=== PATIENT | male | born 1945 | race Caucasian/White ===

== ENCOUNTER 2020-07-21 17:32 | Inpatient (IN) | payer BC, MEDICARE ==
[~2020-07-21] VITALS: Ht 172.7 cm; Wt 72.6 kg
--- NOTE | 2020-07-21 17:32 | NUR ---
Patient brought in by RA 85 with agonal breathing, saturation 73% room air, and unresponsive 102/73, 95 heart rate Etomidate 20 MF IVP given per MD verbal orders, MD Munoz intubated patient at this time and placed patient on vent. NG tube place on intermittent suction, hughes catheter placed tidal volume 550, pip 5, 100% O2, respirations noted at AC 18 Propofol 5mg given IVP per MD verbal orders Right jugular 20g IV placed, Left hand 20 g IV placed, Left femoral IV placed by MD hill Patient remains hypotensive , pressors initiated X-ray done to verify NG and ET position, NG tube output noted with dark green fluid patient remains unresponsive at this time
[2020-07-21] MEDS ORDERED: PANTOPRAZOLE SODIUM IV 80 MG in IV DEXTROSE 5% 100 ML IV ONE (17:45)
[2020-07-21] MEDS ORDERED: PROPOFOL 1,000 MG/100 ML BOTTLE IV ONE (17:45)
[2020-07-21] MEDS ORDERED: IV NORMAL SALINE 1000 ML BAG IV ONE ×2 (17:45→20:00)
--- NOTE | 2020-07-21 17:50 | NUR ---
Pt orally intubated with 7.0 ETT secured at 23cm lip line. Good color change noted on capnographer. Pt placed on ordered settings of A/C 18. VT 550, PEEP 5, FIO2 100% .. Tolerating vent settings well. Vent alarm parameters checked, on and audible. Sputum sample sent to lab. BVM at bedside. Vent plugged into red outlet.
[2020-07-21] MEDS ORDERED: PROPOFOL 100 ML ONE (18:13)
[2020-07-21] MEDS ORDERED: PIPERACILLIN SODIUM/TAZOBACTAM 3.375 G in IV DEXTROSE 5% 50 ML IV ONE (18:15)
[2020-07-21] MEDS ORDERED: NOREPINEPHRINE BITARTRATE 8 MG in IV NORMAL SALINE 242 ML IV PRN (18:15)
[2020-07-21] MEDS ORDERED: PHENYLEPHRINE IV 50 MG in IV NORMAL SALINE 245 ML IV PRN (18:30)
--- NOTE | 2020-07-21 19:00 | NUR ---
OLGA Lynn inserted CVC on left femoral vein, triple lumen catheter.
[2020-07-21 19:22] LABS: CARBON DIOXIDE 11 mmol/L (21-32); CHLORIDE 103 mmol/L (98-107); CREATININE 4.4 mg/dL (0.6-1.3); GLUCOSE 56 mg/dL (74-106); POTASSIUM 5.2 mmol/L (3.5-5.1); UREA NITROGEN, BLOOD 50 mg/dL (7-18)
[2020-07-21 19:25] LABS: NEUTROPHILS % (AUTO) 2.5 % (38.5-71.5)
[2020-07-21 19:26] LABS: EOSINOPHILS % (AUTO) 0.1 % (0.0-7.0); LYMPHOCYTES # (AUTO) 0.7 K/uL (20.0-40.0); LYMPHOCYTES % (AUTO) 94.9 % (20.5-51.5); MEAN CORPUSCULAR HEMOGLOBIN 29.6 uug (23.8-33.4); MEAN CORPUSCULAR HGB CONC 32 g/dL (32.5-36.3); MONOCYTES % (AUTO) 2.5 % (0.0-11.0); PLATELET COUNT (AUTO) 312 K/uL (152-348)
[2020-07-21 19:30] LABS: HEMATOCRIT 20.2 % (36.7-47.1); HEMOGLOBIN 6.5 g/dL (12.5-16.3); WHITE BLOOD COUNT (AUTO) 0.7 K/uL (3.6-10.2)
[2020-07-21] MEDS ORDERED: NOREPINEPHRINE BITARTRATE 4 MG/4 ML VIAL IV ONE ×3 (19:35→23:03)
[2020-07-21 19:38] LABS: ALANINE AMINOTRANSFERASE 1545 U/L (16-63); ALKALINE PHOSPHATASE 120 U/L (50-136); ASPARTATE AMINOTRANSFERASE 1555 U/L (15-37); BILIRUBIN,DIRECT 1.2 mg/dL (0.0-0.2); BILIRUBIN,TOTAL 1.6 mg/dL (0.2-1.0); TOTAL PROTEIN, SERUM 5.2 g/dL (6.4-8.2)
[2020-07-21 20:06] LABS: *BLOOD, URINE 3+ (NEGATIVE); *KETONES,URINE NEGATIVE (NEGATIVE); LEUKOCYTE ESTERASE ,URINE NEGATIVE (NEGATIVE); NITRITE, URINE POSITIVE (NEGATIVE); PH,URINE 6.5 (5.0-8.0); UGLUCOSE NEGATIVE (NEGATIVE)
[2020-07-21 20:13] LABS: *BILIRUBIN,URIN 2+ (NEGATIVE); *CLARITY,URINE CLOUDY (CLEAR); *COLOR,URINE DARK YELLOW (YELLOW)
[2020-07-21] MEDS ORDERED: PIPERACILLIN/TAZOBACTAM/D5W 50 ML IV ONE (20:13)
[2020-07-21 20:14] LABS: RBC,URINE 80-100 /HPF (0-3)
[2020-07-21 20:15] LABS: BACTERIA,URINE MODERATE /HPF (NONE SEEN); SQUAMOUS EPITHELIAL CELL,UR MODERATE /HPF (NONE SEEN)
[2020-07-21] MEDS ORDERED: PANTOPRAZOLE SODIUM 40 MG VIAL ONE (20:15)
--- NOTE | 2020-07-21 20:17 | NUR ---
Dr. Lynn on panel call with Dr. Gates.
[2020-07-21 20:22] LABS: ABG BASE EXCESS -20.5 mmol/L; ABG HCO3 7.4 mmol/L; ABG PCO2 24.4 mmHg (35.0-45.0); ABG PH 7.099 (7.350-7.450); ABG PO2 186.7 mmHg (75.0-100.0); ABG SITE RIGHT FEMORAL; ABG TOTAL HEMOGLOBIN 6.8 G/dL (13.5-18.0); COHb 0.8 % (0.5-1.5); MetHb 0.5 % (0.0-1.5); O2Hb 97.7 % (94.0-97.0); VENT MODE VENT - A/C; VT, ABG 550 mL
[2020-07-21] MEDS ORDERED: DEXTROSE 50% 50 ML DISP.SYRIN ONE (20:23)
[2020-07-21] MEDS ORDERED: DEXTROSE 50% 50 ML DISP.SYRIN IV ONE (20:30)
[2020-07-21] MEDS: VANCOMYCIN IV 1,000 MG in IV DEXTROSE 5% 250 ML IV ONE (20:30)
--- NOTE | 2020-07-21 20:30 | NUR ---
Note to pharmacy: Vancomycin given in ER. Addendum: 07/22/20 at 0122 by BRITTNEY HILL RN Dose was not given in ER; dose given now [id number] @ 0120.
[2020-07-21 20:32] LABS: LYMPHOCYTES % (MANUAL) 92 % (20-40); MONOCYTES % (MANUAL) 4 % (2-10); NEUTROPHILS % (MANUAL) 4 % (42-75)
[2020-07-21] MEDS ORDERED: ONDANSETRON 4 MG/2 ML VIAL ONE (20:50)
--- NOTE | 2020-07-21 21:29 | NUR ---
Son at bedside with patient.
[2020-07-21] MEDS ORDERED: ONDANSETRON 4 MG/2 ML VIAL IV PRN (21:30)
[2020-07-21] MEDS ORDERED: VANCOMYCIN IV 1,000 MG in IV DEXTROSE 5% 250 ML IV ONE (21:30)
[2020-07-21] MEDS ORDERED: SODIUM BICARBONATE 8.4% 50 MEQ in IV D5 1/2 NS 1000 ML 1,000 ML IV PRN (21:30)
[2020-07-21] MEDS ORDERED: NOREPINEPHRINE BITARTRATE 8 MG in IV NORMAL SALINE 250 ML IV PRN (21:30)
--- NOTE | 2020-07-21 21:35 | NUR ---
Bed bath and perineal care provided for patient.
[2020-07-21] MEDS ORDERED: SODIUM BICARBONATE 8.4% 50 MEQ/50 ML DISP.SYRIN IV ONE ×2 (22:11→22:30)
[2020-07-21] MEDS ORDERED: DOPamine IV DRIP 400 MG/250ML 250 ML IV ONE (22:15)
[2020-07-21] MEDS ORDERED: DOPamine IV DRIP 400 MG/250ML 250 ML ONE (22:18)
[2020-07-21] MEDS ORDERED: PHENYLEPHRINE 10 MG/1 ML VIAL ONE (22:18)
--- NOTE | 2020-07-21 22:20 | NUR ---
Dopamine 400mg started at 2220. Infusing in CVC.
[2020-07-21] MEDS ORDERED: HYDROCORTISONE SOD SUCCINATE 100 MG/2 ML VIAL IV ONE (22:30)
--- NOTE | 2020-07-21 22:58 | NUR ---
Another bag of Levophed 8mg started for infusion via CVC
[2020-07-21] MEDS ORDERED: VASOPRESSIN 20 UNIT in IV NORMAL SALINE 40 ML IV PRN (23:30)
[2020-07-21 23:45] VITALS: BP 105/51
--- NOTE | 2020-07-21 23:57 | NUR ---
Patient transported to CCU in stable condition. Report given to HOLLY Abernathy. Patient was transported with a monitor worker, and assistance of lead housekeeper and SWAPNA Wagoner. Patient under the care of Dr. Crews.
[2020-07-22] VITALS (81 sets, daily range): BP systolic 0–179; BP diastolic 0–96
--- NOTE | 2020-07-22 00:01 | NUR ---
Patient admitted to CCU #4 @ [id number] at 2345. Rec'd via tonardemi from ER. Max'd dose: DEopamin, Levophed, Neosynephrine gtts; plus, Diprivan & Bicarb gtts. Pupils fixed & dilated @ 6 mm. Skin mottled generalized. NGT clamped right nare. Oral ETT @ 7.0 @ lip: A/C 18, TV 550, peep 5; Julieta Fenton, BROADBAND TECHNICIAN agrees FiO2 100%; coarse breath sounds, generalized. Abdomen soft, non-distended, hypoactive bowel sounds. Sanon without urine output. Addendum: 07/22/20 at 0058 by BRITTNEY HILL RN Unable to obtain SpO2 reading; as, peripherial circulation clamped down / vasopressors.
[2020-07-22] MEDS ORDERED: NOREPINEPHRINE BITARTRATE 4 MG/4 ML VIAL IV ONE (00:46)
[2020-07-22] MEDS ORDERED: CEFEPIME HCL 1 G VIAL ONE ×2 (01:18→01:36)
[2020-07-22] MEDS: VANCOMYCIN IV 1,000 MG in IV DEXTROSE 5% 250 ML IV ONE (01:19)
[2020-07-22] MEDS ORDERED: VANCOMYCIN IV 200 ML ONE (01:19)
[2020-07-22] MEDS ORDERED: IV NORMAL SALINE 250 ML IV PRN (01:30)
[2020-07-22] MEDS ORDERED: CEFEPIME HCL 2 G in IV DEXTROSE 5% 100 ML IV ONE (02:00)
[2020-07-22] MEDS: PHENYLEPHRINE IV 50 MG in IV NORMAL SALINE 245 ML IV PRN ×3 (02:00→10:47)
[2020-07-22 05:59] LABS: ABG BASE EXCESS -31.4 mmol/L; ABG HCO3 5.2 mmol/L; ABG PCO2 62.4 mmHg (35.0-45.0); ABG PH 6.542 (7.350-7.450); ABG PO2 33.7 mmHg (75.0-100.0); ABG SITE RIGHT BRACHIAL; ABG TOTAL HEMOGLOBIN 7.1 G/dL (13.5-18.0); COHb 0.4 % (0.5-1.5); O2Hb 32.8 % (94.0-97.0); VENT MODE VENT - A/C; VT, ABG 550 mL
[2020-07-22 06:18] LABS: EOSINOPHILS % (AUTO) 0.1 % (0.0-7.0); HEMATOCRIT 25.5 % (36.7-47.1); LYMPHOCYTES # (AUTO) 0.4 K/uL (20.0-40.0); MEAN CORPUSCULAR HEMOGLOBIN 29.8 uug (23.8-33.4); MEAN CORPUSCULAR HGB CONC 28 g/dL (32.5-36.3); MEAN CORPUSCULAR VOLUME 105.1 fL (73.0-96.2); NEUTROPHILS % (AUTO) 2.9 % (38.5-71.5); PLATELET COUNT (AUTO) 223 K/uL (152-348)
[2020-07-22 06:29] LABS: ALKALINE PHOSPHATASE 131 U/L (50-136); BILIRUBIN,TOTAL 1.7 mg/dL (0.2-1.0); CHLORIDE 102 mmol/L (98-107); CREATININE 4.9 mg/dL (0.6-1.3); GLUCOSE 132 mg/dL (74-106); TOTAL PROTEIN, SERUM 5.1 g/dL (6.4-8.2); UREA NITROGEN, BLOOD 48 mg/dL (7-18)
[2020-07-22 06:30] LABS: MAGNESIUM 2.5 mg/dL (1.8-2.4)
[2020-07-22 06:36] LABS: HEMOGLOBIN 7.3 g/dL (12.5-16.3); RED BLOOD CELL COUNT(AUTO) 2.43 MIL/uL (4.06-5.63); WHITE BLOOD COUNT (AUTO) 0.4 K/uL (3.6-10.2)
[2020-07-22] MEDS: DOPamine IV DRIP 400 MG/250ML 250 ML IV PRN ×4 (06:48→14:58)
[2020-07-22 07:01] LABS: LYMPHOCYTES % (MANUAL) 94 % (20-40); MONOCYTES % (MANUAL) 3 % (2-10); NEUTROPHILS % (MANUAL) 3 % (42-75)
[2020-07-22 07:04] LABS: CARBON DIOXIDE < 5 mmol/L (21-32); POTASSIUM 6.9 mmol/L (3.5-5.1)
[2020-07-22 07:06] LABS: ALANINE AMINOTRANSFERASE 3204 U/L (16-63); ASPARTATE AMINOTRANSFERASE 3204 U/L (15-37)
[2020-07-22] MEDS: NOREPINEPHRINE BITARTRATE 32 MG in IV NORMAL SALINE 218 ML IV PRN ×3 (07:12→20:45)
[2020-07-22] MEDS ORDERED: FILGRASTIM 480 MCG/1.6 ML VIAL SUBCUT ONE (07:15)
[2020-07-22] MEDS ORDERED: IV DEXTROSE 5% 100 ML BAG IV ONE (07:15)
[2020-07-22] MEDS ORDERED: BUMETANIDE 1 MG/4 ML VIAL IV ONE (07:45)
[2020-07-22] MEDS ORDERED: SODIUM POLYSTYRENE SULFONATE 15 G/60 ML LIQUID UDC PO ONE (07:45)
[2020-07-22] MEDS ORDERED: SODIUM BICARBONATE 8.4% 50 MEQ/50 ML DISP.SYRIN IV ONE ×5 (07:45→23:49)
--- NOTE | 2020-07-22 07:46 | NUR ---
AT BEDSIDE WITH RT AND NOTED PATIENT GOING BRADYCARDIC, CHECKED PULSES, FAINT AND THEN LOSS OF PULSE. PATIENT IN PEA. CODE INITIATED AND COMPRESSIONS STARTED. PATIENT ALREADY HAD ESTABLISHED ET TUBE IN PLACE AND WAS MAXED OUT ON VASOPRESSIN, NEOSYNEPHRINE, NOREPINEPHRINE, AND ON 20MCG OF DOPAMINE, AND A BICARB DRIP WITH NO BP FOR THE LAST HOUR AND 30 MIN. PLEASE REFER TO CODE SHEET FOR DETAILS OF CODE.
[2020-07-22] MEDS ORDERED: BUMETANIDE INJ 4 MG in IV DEXTROSE 5% 24 ML IV ONE (08:00)
--- NOTE | 2020-07-22 08:30 | NUR ---
Received a call from Katarina Robert and as stated by her "When my please call me not my son He doesn't want anything to do with the call. just give me a call my numb is . Assigned R.N notified.
[2020-07-22] MEDS: VASOPRESSIN 20 UNIT in IV NORMAL SALINE 40 ML IV PRN ×2 (08:36→16:50)
[2020-07-22] MEDS ORDERED: TBO-FILGRASTIM 480 MCG/0.8 ML SYRINGE SQ ONE (09:00)
[2020-07-22] MEDS ORDERED: PANTOPRAZOLE SODIUM 40 MG VIAL IV SCH (09:00)
[2020-07-22] MEDS: SODIUM BICARBONATE 8.4% 150 MEQ in IV D5W 1000ML 1,000 ML IV PRN ×2 (09:10→21:37)
[2020-07-22] MEDS: HYDROCORTISONE SOD SUCCINATE 100 MG/2 ML VIAL IV SCH ×3 (09:12→21:40)
[2020-07-22 10:11] LABS: ABG BASE EXCESS -31.5 mmol/L; ABG HCO3 1.9 mmol/L; ABG PCO2 16.1 mmHg (35.0-45.0); ABG PO2 263.5 mmHg (75.0-100.0); ABG SITE A-Line; ABG TOTAL HEMOGLOBIN 6.4 G/dL (13.5-18.0); COHb 1.1 % (0.5-1.5); MetHb 1.1 % (0.0-1.5); O2Hb 97.4 % (94.0-97.0); VENT MODE VENT - A/C 26; VT, ABG 550 mL
[2020-07-22 10:46] LABS: CHLORIDE 103 mmol/L (98-107); CREATININE 5.1 mg/dL (0.6-1.3); GLUCOSE 153 mg/dL (74-106); UREA NITROGEN, BLOOD 51 mg/dL (7-18)
--- NOTE | 2020-07-22 10:50 | NUR ---
CURRENTLY ON DIALYSIS AT THIS TIME WITH KETTLE SKIMMER AT BEDSIDE.
[2020-07-22 11:00] LABS: CARBON DIOXIDE < 5 mmol/L (21-32); POTASSIUM 7.3 mmol/L (3.5-5.1)
--- NOTE | 2020-07-22 11:08 | NUR ---
PAGED DR SHIELDS - PULMONOLOGY, AT 1057 REGARDING THE 1000 ABG READING. RECEIVED A CALLBACK AT THIS TIME. NO NEW ORDERS RECEIVED AT THIS TIME.
--- NOTE | 2020-07-22 12:56 | NUR ---
DIALYSIS COMPLETED. NO OUTPUT, PER GLASS INSPECTOR.
[2020-07-22 13:20] LABS: ABG BASE EXCESS -12.7 mmol/L; ABG HCO3 12.5 mmol/L; ABG PCO2 25.8 mmHg (35.0-45.0); ABG PH 7.303 (7.350-7.450); ABG PO2 170.2 mmHg (75.0-100.0); ABG SITE A-Line; ABG TOTAL HEMOGLOBIN 5.7 G/dL (13.5-18.0); MetHb 0.8 % (0.0-1.5); O2Hb 97.2 % (94.0-97.0); VENT MODE VENT - A/C26; VT, ABG 550 mL
[2020-07-22] MEDS ORDERED: VANCOMYCIN IV 500 MG in IV DEXTROSE 5% 100 ML IV ONE (13:30)
[2020-07-22] MEDS: PHENYLEPHRINE IV 100 MG in IV NORMAL SALINE 240 ML IV PRN ×2 (13:56→20:44)
--- NOTE | 2020-07-22 14:00 | NUR ---
salvage mend worker called and was informed that the was per what the son said. Needed clarification of who will be the next of kin at this point if they are and he is not newly to present partner.
[2020-07-22] MEDS ORDERED: ETOMIDATE 20 MG/10 ML VIAL MC ONE (14:12)
[2020-07-22] MEDS ORDERED: PROPOFOL 200 MG/20 ML BOTTLE IV ONE (14:12)
--- NOTE | 2020-07-22 14:40 | NUR ---
Nick conservation worker called back. Due to unknown marital status the son Jimbo is the decision maker and decisions are being made together by Jimbo's mother, patient brother, and the son, and final decisions will be informed to us by Jimbo the son.
[2020-07-22] MEDS ORDERED: CEFEPIME HCL 1 G in IV DEXTROSE 5% 50 ML IV SCH (15:00)
--- NOTE | 2020-07-22 15:05 | NUR ---
Master Plumber Consultation: 2:00pm: This LIBRARY CLERICAL ASSISTANT was informed by CCU nurse Nano that there was some discrepancies in the status of patient's decision maker. Nano stated that patient's Maryam was actually patient's ex-, per son Jimbo's report, and that they needed clarification on the responsible decision maker for the family. RENNY called Maryam, , who stated that she was to the patient for 33 years, and they have 1 son together, Jimbo. Maryam stated that she has been from the patient for a while, but was not sure if the divorce had fully gone through. Maryam stated that she, her son Jimbo (who is also the patient's son) and patient's brother Francisco, are all making decision together and "we are all on the same page". RENNY thanked Maryam for this information, and then called patient's son Jimbo to verify this information. Jimbo, , was available to speak with this SW. Jimbo verified that they are making all decisions as a family, and RENNY expressed understanding. RENNY explained to Jimbo that Jimbo would be the point person for the family, given that he is the adult child for the patient, and that Maryam is the ex-. Jimbo expressed understanding, stated that the family wants to wait at least until tomorrow to see how patient does overnight, and Jimbo requested that all decisions be made with the family as a whole. RENNY expressed understanding and agreement, and stated that the staff would try their best to accommodate this request, as able. RENNY informed HOLLY Mcgill and HOLLY Donato of above conversation. RENNY also informed Stable Helper Mikki of above.
--- NOTE | 2020-07-22 15:26 | NUR ---
placed patient on a warming blanket.
--- NOTE | 2020-07-22 17:15 | NUR ---
PAGED DR GUO, HOSPITALIST, REGARDING ABG HEMOGLOBIN RESULTS. RECEIVED TELEPHONE ORDER AT THIS TIME.
[2020-07-22 18:03] LABS: LYMPHOCYTES # (AUTO) 0.4 K/uL (20.0-40.0)
[2020-07-22 18:04] LABS: CHLORIDE 100 mmol/L (98-107); GLUCOSE 116 mg/dL (74-106); UREA NITROGEN, BLOOD 40 mg/dL (7-18)
[2020-07-22 18:05] LABS: EOSINOPHILS % (AUTO) 2.7 % (0.0-7.0); HEMATOCRIT 21.1 % (36.7-47.1); LYMPHOCYTES % (AUTO) 92.2 % (20.5-51.5); MEAN CORPUSCULAR HEMOGLOBIN 29.4 uug (23.8-33.4); MEAN CORPUSCULAR HGB CONC 29 g/dL (32.5-36.3); MEAN CORPUSCULAR VOLUME 100.6 fL (73.0-96.2); MONOCYTES % (AUTO) 1.9 % (0.0-11.0); NEUTROPHILS % (AUTO) 3.2 % (38.5-71.5); PLATELET COUNT (AUTO) 95 K/uL (152-348)
[2020-07-22 18:08] LABS: CARBON DIOXIDE 5 mmol/L (21-32); POTASSIUM 6.9 mmol/L (3.5-5.1)
[2020-07-22 18:10] LABS: HEMOGLOBIN 6.2 g/dL (12.5-16.3); WHITE BLOOD COUNT (AUTO) 0.5 K/uL (3.6-10.2)
--- NOTE | 2020-07-22 18:17 | NUR ---
CRITICAL LAB RESULTS: K+ 6.9, CO2 <5 [address] GUO AT THIS TIME AND RECEIVED TELEPHONE ORDERS.
[2020-07-22] MEDS ORDERED: INSULIN REGULAR, HUMAN 300 UNIT/3 ML VIAL IV ONE (18:30)
[2020-07-22] MEDS ORDERED: DEXTROSE 50% 50 ML DISP.SYRIN IV ONE (18:30)
[2020-07-22] MEDS ORDERED: CALCIUM CHLORIDE 1 GM/10 ML DISP.SYRIN IVP ONE (18:30)
--- NOTE | 2020-07-22 18:40 | NUR ---
CALLED DR HILL PER DR GUO REQUEST FOR POSSIBLE REPEAT DIALYSIS DUE TO CRITICAL LABS. ORDERS RECEIVED. PLEASE CHECK ORDER HISTORY FOR NEW DIALYSIS ORDERS. AND DIALYSIS NURSE ON THEIR WAY.
[2020-07-22] MEDS ORDERED: ALBUMIN HUMAN 25% 50 ML IV PRN (19:00)
[2020-07-22] MEDS ORDERED: MANNITOL 25% 12.5 G/50 ML VIAL IV ONE (19:00)
--- NOTE | 2020-07-22 19:30 | NUR ---
received patient , in bed eyes closed . lips and nailbeds cyanotic. condition critical, on 3 pressors via left femoral central line. oral ett, 100% fio2 unable to get 02 sat readings. hypothermic on continuos warm blanket.
[2020-07-22 19:46] LABS: ALKALINE PHOSPHATASE 161 U/L (50-136)
[2020-07-22 19:47] LABS: ALANINE AMINOTRANSFERASE 10136 U/L (16-63); ASPARTATE AMINOTRANSFERASE 7819 U/L (15-37); TOTAL PROTEIN, SERUM 3.5 g/dL (6.4-8.2)
[2020-07-22 19:57] LABS: EOSINOPHILS % (MANUAL) 2 % (0-8); LYMPHOCYTES % (MANUAL) 90 % (20-40); MONOCYTES % (MANUAL) 4 % (2-10); NEUTROPHILS % (MANUAL) 4 % (42-75)
--- NOTE | 2020-07-22 20:45 | NUR ---
patient received 1 unit of prbc, mannitol and Plasmanate all given by dialysis nurse
--- NOTE | 2020-07-22 20:50 | NUR ---
Dialysis stopped by miriam supervisor forming and tempering due to severe hypotension. Neosynephrine and Vasopressin drips titrated up.
[2020-07-22 20:59] LABS: *BLOOD, URINE 3+ (NEGATIVE); *CLARITY,URINE CLEAR (CLEAR); *COLOR,URINE YELLOW (YELLOW); *KETONES,URINE TRACE (NEGATIVE); LEUKOCYTE ESTERASE ,URINE NEGATIVE (NEGATIVE); NITRITE, URINE NEGATIVE (NEGATIVE); PH,URINE 5.5 (5.0-8.0); UGLUCOSE NEGATIVE (NEGATIVE)
[2020-07-22 21:00] LABS: *BILIRUBIN,URIN 1+ (NEGATIVE)
--- NOTE | 2020-07-22 21:05 | NUR ---
Patient's brother Justus called; updated of condition. .
[2020-07-22 21:12] LABS: *CREATININE,URINE 250.9 mg/dL (30-125); *URINE TOTAL PROTEIN RANDOM 377.7 mg/dL (<150/24HR)
[2020-07-22 22:15] LABS: BACTERIA,URINE NONE SEEN /HPF (NONE SEEN); RBC,URINE 20-50 /HPF (0-3); SQUAMOUS EPITHELIAL CELL,UR FEW /HPF (NONE SEEN); WBC,URINE 0-3 /HPF (0-3)
[2020-07-22 22:16] LABS: URINE AMORPHOUS URATE MODERATE /HPF
--- NOTE | 2020-07-22 22:30 | NUR ---
teletypesetter monitor: junctional rhythm? rate 60, widened QRS. Still unable to get saturation readings. Skin cyanotic and mottled. Spoke to patient's son Jimbo. Informed of patient's condition. Confirmed DNR.
--- NOTE | 2020-07-22 23:48 | NUR ---
patient dnr asysyole on monitor unable to obtain b/p.
[2020-07-22] MEDS ORDERED: EPINEPHRINE 1:10,000 1 MG/10 ML DISP.SYRIN IV ONE (23:49)
[2020-07-22] MEDS ORDERED: CALCIUM CHLORIDE 1 GM/10 ML DISP.SYRIN IV ONE (23:49)
--- NOTE | 2020-07-22 23:53 | NUR ---
Patient apneic for 5 minutes Pupils fixed and dilated No audible heart tones and breath sounds No palpable pulses and corneal reflexes Pronounced at 2350
--- NOTE | 2020-07-22 23:53 | NUR ---
place call to md regarding unable to obtain b/p and no pulse , left message with answering service. await call back.
--- NOTE | 2020-07-22 23:59 | NUR ---
Family notified of patient's expiration. Spoke to both patient's son Jimbo and brother Justus. No arrangements as per son; nursing office number given. Also confirmed no belongings or personal effects.
--- NOTE | 2020-07-23 00:10 | NUR ---
Received a call from Lianna Folcroft [facility], family has made arrangements for remains removal.
--- NOTE | 2020-07-23 00:11 | NUR ---
called [facility] spoke to jana , okay to release body # [id number]
--- NOTE | 2020-07-23 00:17 | NUR ---
phone consent obtained from son for release of body to [facility].
--- NOTE | 2020-07-23 00:20 | NUR ---
[facility] notified that phone consent was given by son Jimbo for the release of remains. ETA 1.5-2 hours. Wireline Supervisor informed.
--- NOTE | 2020-07-23 00:24 | NUR ---
Julieta Fenton called back; informed of patient's expiration. Dr. Crews will sign certificate as per ASSEMBLER FOR PULLER OVER MACHINE.
[2020-07-23] MEDS ORDERED: VANCOMYCIN IV 500 MG in IV DEXTROSE 5% 100 ML IV SCH (01:00)
--- NOTE | 2020-07-23 01:00 | NUR ---
care done. Addendum: 07/23/20 at 0137 by [facility] RN1 RN postmortem care done.
--- NOTE | 2020-07-23 01:53 | NUR ---
Mortuary here. Body released to [facility]. Yarn Skeins Examiner Tamia zamora.
[2020-07-23] MEDS ORDERED: CEFEPIME HCL 2 G in IV DEXTROSE 5% 100 ML IV SCH (02:00)
== END 2020-07-22 23:50 | DRG 871 ==
LOC: ER 17:35 → CCU 22:41
PROVIDERS: ADMIT Internal Medicine; ATTEND Internal Medicine
PROC: 5A1945Z Respiratory Ventilation, 24-96 Consecutive Hours (ICD-10-PCS; principal; 2020-07-21)
PROC: 0BH17EZ Insertion of Endotracheal Airway into Trachea, Via Natural or Artificial Opening (ICD-10-PCS; 2020-07-21)
PROC: 06HY33Z Insertion of Infusion Device into Lower Vein, Percutaneous Approach (ICD-10-PCS; 2020-07-21)
PROC: 30233N1 Transfusion of Nonautologous Red Blood Cells into Peripheral Vein, Percutaneous Approach (ICD-10-PCS; 2020-07-22)
PROC: 5A12012 Performance of Cardiac Output, Single, Manual (ICD-10-PCS; 2020-07-22)
PROC: 04HK33Z Insertion of Infusion Device into Right Femoral Artery, Percutaneous Approach (ICD-10-PCS; 2020-07-22)
PROC: 02HV33Z Insertion of Infusion Device into Superior Vena Cava, Percutaneous Approach (ICD-10-PCS; 2020-07-22)
PROC: B548ZZA Ultrasonography of Superior Vena Cava, Guidance (ICD-10-PCS; 2020-07-22)
PROC: 5A1D70Z Performance of Urinary Filtration, Intermittent, Less than 6 Hours Per Day (ICD-10-PCS; 2020-07-22)
DX: A41.9 Sepsis, unspecified organism (principal); J96.01 Acute respiratory failure with hypoxia; J96.02 Acute respiratory failure with hypercapnia; N17.0 Acute kidney failure with tubular necrosis; J69.0 Pneumonitis due to inhalation of food and vomit; R65.21 Severe sepsis with septic shock; I21.A1 Myocardial infarction type 2; K72.00 Acute and subacute hepatic failure without coma; D61.818 Other pancytopenia; D84.9 Immunodeficiency, unspecified; E87.2 Acidosis; D68.9 Coagulation defect, unspecified; G93.1 Anoxic brain damage, not elsewhere classified; D68.8 Other specified coagulation defects; R65.20 Severe sepsis without septic shock; D46.9 Myelodysplastic syndrome, unspecified; Z99.2 Dependence on renal dialysis; E87.5 Hyperkalemia; Z66 Do not resuscitate; I46.9 Cardiac arrest, cause unspecified; I50.9 Heart failure, unspecified; T45.1X5A Adverse effect of antineoplastic and immunosuppressive drugs, initial encounter; Y92.009 Unspecified place in unspecified non-institutional (private) residence as the place of occurrence of the external cause; Z20.822 Contact with and (suspected) exposure to COVID-19; N18.9 Chronic kidney disease, unspecified; D50.0 Iron deficiency anemia secondary to blood loss (chronic)
CPT/HCPCS: 36415; 36556; 36600; 51702; 70030-TC; 71045; 83605; 83735; 84100; 84156; 84300; 84443; 85025; 85730; 86850; 86900; 86901; 86920; 87040; 87077; 87086; 92950; 93005; 94002; 94003; A4217; A4663; C9113; G0378; J0171; J0692; J1265; J1442; J1720; J1815; J2150; J2370; J2405; J2543; J3370; J3490; J7030; J7050; J7060; J7070; P9016-BL; P9021; P9047